=== PATIENT | male | born 1955 | race African-American/Black ===

== ENCOUNTER 2023-05-16 15:02 | Inpatient (IN) | payer BC ==
[2023-05-16 16:02] LABS: BASO % 0.8 % (0-2.0); EOS % 7.2 % (0-4.5); HEMATOCRIT 36.4 % (35.4-49); HEMOGLOBIN 11.8 GM/dL (11.7-16.9); LYMPH % 15.3 % (8-40); MCH 28.3 pg (25.7-33.7); MCHC 32.3 g/dl (32.0-35.9); MEAN CELL VOLUME 87.8 fl (80-96); MEAN PLT VOLUME 8.3 fl (7.5-11.1); MONO % 7.2 % (3.8-10.2); NEUT % 69.5 % (42.8-82.8); PLATELET COUNT 136 10^3/uL (134-434); RBC 4.15 M/mm3 (4.00-5.60); RDW 16.1 % (11.9-15.9); WHITE BLOOD COUNT 4.4 K/mm3 (4.0-10.0)
[2023-05-16] MEDS: SODIUM CHLORIDE 1,000 ML IV SCH (16:02)
[2023-05-16 16:03] LABS: URINE APPEARANCE CLEAR; URINE BILIRUBIN NEGATIVE (NEGATIVE); URINE COLOR YELLOW; URINE GLUCOSE (UA) NEGATIVE (NEGATIVE); URINE KETONE NEGATIVE (NEGATIVE); URINE LEUK ESTERASE NEGATIVE (NEGATIVE); URINE NITRITE NEGATIVE (NEGATIVE); URINE PROTEIN NEGATIVE (NEGATIVE); URINE UROBILINOGEN 0.2 mg/dL (0.2-1.0)
[2023-05-16 16:25] LABS: ACTIVATED PTT 34.7 SECONDS (25.2-36.5); INR 1.1 (0.83-1.09); PROTHROMBIN TIME (PATIENT) 12.8 SEC (9.7-13.0)
[2023-05-16 16:34] LABS: CHLORIDE 108 mmol/L (98-107); POTASSIUM 4.6 mmol/L (3.5-5.1); SODIUM 139 mmol/L (136-145)
[2023-05-16] MEDS ORDERED: ASPIRIN 325 MG TABLET ONE (16:34)
[2023-05-16 16:38] LABS: ALBUMIN 4.1 g/dl (3.4-5.0); ANION GAP 5 mmol/L (4-13); CALCIUM 9.3 mg/dL (8.5-10.1); CO2 26 mmol/L (21-32)
[2023-05-16] MEDS: ASPIRIN 325 MG TABLET PO ONE (16:38)
[2023-05-16 16:39] LABS: GLUCOSE,RANDOM 184 mg/dL (74-106)
[2023-05-16 16:40] LABS: BLOOD UREA NITROGEN 24.3 mg/dL (7-18)
[2023-05-16 16:41] LABS: SGPT/ALT 38 U/L (13-61)
[2023-05-16 16:42] LABS: CREATININE 1.8 mg/dL (0.55-1.3); SGOT/AST 44 U/L (15-37)
[2023-05-16 16:43] LABS: CHOLESTEROL 185 mg/dL (50-200); TOT PROT 7.8 g/dl (6.4-8.2)
[2023-05-16 16:44] LABS: LDL CHOLESTEROL (ONLY SJRH) 109 mg/dL (5-100)
[2023-05-16 16:45] LABS: ALK PHOS 67 U/L (45-117); BILIRUBIN,TOTAL 0.4 mg/dL (0.2-1)
[2023-05-16 16:46] LABS: HDL CHOLESTEROL 49 mg/dL (40-60)
[2023-05-16 18:44] LABS: CALCIUM 9.2 mg/dL (8.5-10.1)
[2023-05-16 18:45] LABS: BLOOD UREA NITROGEN 23.7 mg/dL (7-18)
[2023-05-16 18:48] LABS: CREATININE 1.7 mg/dL (0.55-1.3)
[2023-05-16] MEDS: ATORVASTATIN CA 40 MG TABLET (FP) PO SCH (21:57)
[2023-05-16 22:40] VITALS: BMI 22.8
[2023-05-17] MEDS: ACETAMINOPHEN 325 MG TABLET (FP) PO PRN (01:43)
[2023-05-17] MEDS: HEPARIN NA (PORCINE) 5,000 UNITS/ML 1ML VIAL SQ SCH (06:33)
[2023-05-17] MEDS: INSULIN ASPART SLIDING SCALE (NOVOLOG) 1 VIAL SQ SCH (06:39)
[2023-05-17 07:13] LABS: BASO % 0.6 % (0-2.0); HEMATOCRIT 36.1 % (35.4-49); HEMOGLOBIN 12.2 GM/dL (11.7-16.9); LYMPH % 13.7 % (8-40); MCH 29.2 pg (25.7-33.7); MCHC 33.7 g/dl (32.0-35.9); MEAN CELL VOLUME 86.7 fl (80-96); MEAN PLT VOLUME 8.6 fl (7.5-11.1); MONO % 7.2 % (3.8-10.2); NEUT % 71.5 % (42.8-82.8); PLATELET COUNT 135 10^3/uL (134-434); RBC 4.17 M/mm3 (4.00-5.60); RDW 15.7 % (11.9-15.9)
[2023-05-17 07:21] LABS: POTASSIUM 4.3 mmol/L (3.5-5.1)
[2023-05-17 07:31] LABS: ALBUMIN 3.8 g/dl (3.4-5.0); CALCIUM 9.3 mg/dL (8.5-10.1)
[2023-05-17 07:34] LABS: PHOSPHOROUS 2.8 mg/dL (2.5-4.9)
[2023-05-17 07:36] LABS: BILIRUBIN,TOTAL 0.6 mg/dL (0.2-1); CREATININE 1.6 mg/dL (0.55-1.3); TOT PROT 7.2 g/dl (6.4-8.2)
[2023-05-17] MEDS: ASPIRIN COATED 81 MG TABLET.EC PO SCH (09:27)
[2023-05-17] MEDS: DIGOXIN 0.125 MG TABLET PO SCH (09:29)
[2023-05-17] MEDS: ONDANSETRON 4 MG/2 ML VIAL IVPB ONE (14:31)
[2023-05-17] MEDS: SODIUM CHLORIDE 1,000 ML IV SCH (14:32)
[2023-05-17] MEDS ORDERED: ASPIRIN 325 MG TABLET PO ONE (16:15)
[2023-05-17 20:39] VITALS: RESP 18
[2023-05-17] MEDS: APIXABAN 5 MG TABLET PO SCH (21:21)
[2023-05-18 07:44] LABS: BASO % 0.5 % (0-2.0); EOS % 1.6 % (0-4.5); HEMATOCRIT 35.9 % (35.4-49); HEMOGLOBIN 12.1 GM/dL (11.7-16.9); LYMPH % 12.5 % (8-40); MCH 28.9 pg (25.7-33.7); MCHC 33.7 g/dl (32.0-35.9); MEAN CELL VOLUME 85.9 fl (80-96); MEAN PLT VOLUME 8.6 fl (7.5-11.1); NEUT % 78.4 % (42.8-82.8); PLATELET COUNT 139 10^3/uL (134-434); RBC 4.18 M/mm3 (4.00-5.60); RDW 15.1 % (11.9-15.9)
[2023-05-18 08:00] LABS: ALBUMIN 3.5 g/dl (3.4-5.0); BLOOD UREA NITROGEN 20.2 mg/dL (7-18); CALCIUM 8.1 mg/dL (8.5-10.1)
[2023-05-18 08:03] LABS: CREATININE 1.6 mg/dL (0.55-1.3)
[2023-05-18 08:04] LABS: BILIRUBIN,TOTAL 0.8 mg/dL (0.2-1); TOT PROT 6.5 g/dl (6.4-8.2)
[2023-05-18 15:31] VITALS: BP 113/69; PULSE 58; TEMP 98.4
== END 2023-05-18 15:35 | disposition home or self-care (01) | DRG 65 ==
LOC: JER 15:02 → JERBED 16:52 → OBSVTOIN 20:34 → J4W 21:32
PROVIDERS: ADMIT Internal Medicine; ATTEND Internal Medicine
PROC: 0CJS8ZZ Inspection of Larynx, Via Natural or Artificial Opening Endoscopic (ICD-10-PCS; principal; 2023-05-18)
DX: I63.89 Other cerebral infarction (principal); I48.92 Unspecified atrial flutter; R47.01 Aphasia; R29.700 NIHSS score 0; I10 Essential (primary) hypertension; E11.9 Type 2 diabetes mellitus without complications; R13.14 Dysphagia, pharyngoesophageal phase; C01 Malignant neoplasm of base of tongue
CPT/HCPCS: 36415; 70450-TC; 70544-TC; 70551-TC; 74230-TC-FY; 80048; 80053; 80061; 80162; 81003; 82436; 82550; 82553; 82962; 83036; 83735; 84100; 84133; 84300; 84484; 84540; 85025; 85610; 85730; 86850; 86900; 86901; 92611-GN; 93005; 93010; 93306-TC; 93880-TC; 97116-GP; 97162-GP; 99291; G0378; J1644